=== PATIENT | male | born 1960 | race Caucasian/White ===

== ENCOUNTER → 2016-10-30 | Outpatient (CLI) | payer BC ==
[~2016-10-30] MED LIST: ASPI325T39 PO; CLOTCRE33 EX; LISI-787 PO; METF1000 PO; PANT40TA PO; REPA2TAB12 PO; SIMV20TA2 PO
[2016-10-30 12:27] LABS: ESTIMATED AVERAGE GLUCOSE 258 mg/dl; HA1C FLAG Normal (Normal)
[2016-10-30 12:34] LABS: ALT/SGPT 25 U/L (12-78); AST/SGOT 15 U/L (15-37); BLOOD UREA NITROGEN 11 mg/dl (7-18); BUN/CREATININE RATIO 11.7 (10-20); CARBON DIOXIDE 29 mmol/L (21-32); CHLORIDE 102 mmol/L (98-107); CHOLESTEROL 186 mg/dl (0-200); CREATININE 0.95 mg/dl (0.60-1.40); GLUCOSE 227 mg/dl (70-99); SODIUM 137 mmol/L (136-145); TRIGLYCERIDES 228 mg/dl (0-150); VERY LOW DENSITY LIPOPROT CALC 46 mg/dl
[2016-10-30 12:38] LABS: CALCIUM 8.9 mg/dl (8.5-10.1)
[2016-10-30 12:45] LABS: ALKALINE PHOSPHATASE 63 U/L (45-117); CHOLESTEROL/HDL RATIO 6.6; HDL CHOLESTEROL 28 mg/dl; LDL CHOLESTEROL CALCULATED 112 mg/dl
== END | disposition home or self-care (01) ==
LOC: C.LABBFT 07:50
PROVIDERS: ATTEND Internal Medicine
DX: E11.65 Type 2 diabetes mellitus with hyperglycemia (principal)

== ENCOUNTER → 2017-06-19 | Outpatient (CLI) | payer BC ==
[2017-06-19 13:48] LABS: ALBUMIN 3.8 gm/dl (3.4-5.0); ALT/SGPT 26 U/L (12-78); AST/SGOT 14 U/L (15-37); BLOOD UREA NITROGEN 14 mg/dl (7-18); CALCIUM 8.9 mg/dl (8.5-10.1); CARBON DIOXIDE 27 mmol/L (21-32); CHOLESTEROL 172 mg/dl (0-200); CREATININE 0.92 mg/dl (0.60-1.40); GLUCOSE 198 mg/dl (70-99); POTASSIUM 4.2 mmol/L (3.5-5.1); SODIUM 135 mmol/L (136-145)
[2017-06-19 14:07] LABS: ALKALINE PHOSPHATASE 64 U/L (45-117); LDL CHOLESTEROL CALCULATED 118 mg/dl; TOTAL PROTEIN 8.3 gm/dl (6.4-8.2)
== END | disposition home or self-care (01) ==
LOC: C.LABBFT 10:15
PROVIDERS: ATTEND Internal Medicine
DX: Z12.5 Encounter for screening for malignant neoplasm of prostate (principal); E11.65 Type 2 diabetes mellitus with hyperglycemia